=== PATIENT | male | born 1960 | race Caucasian/White ===

== ENCOUNTER → 2020-05-12 11:55 | Outpatient (CLI) | payer OTHER, SELFPAY ==
--- NOTE | 2020-05-12 12:13 | XR_ITS ---
PROCEDURE: XR SHOULDER RT MIN 2V CLINICAL INDICATION: right shoulder pain COMPARISON: No exams were available for comparison FINDINGS: No fracture or dislocation. No lytic or blastic change. There is normal mineralization. The joint spaces are well-preserved. No significant degenerative/arthritic changes. No erosive changes evident. Other findings:None. IMPRESSION: Negative right shoulder Dictated by: Marcell Gonzalez MD 05/12/2020 12:34 Marcell Gonzalez MD in [facility] 05/12/2020 12:34
== END ==
PROVIDERS: Visit Provider Orthopaedic Surgery
DX: M25.511 Pain in right shoulder (principal)
CPT/HCPCS: 73030